=== PATIENT | male | born 1995 | race Caucasian/White ===

== ENCOUNTER → 2016-04-04 | Outpatient (CLI) | payer BC, OTHER | END | disposition home or self-care (01) | LOC: C.RDSM 04-03 08:00 | PROVIDERS: ATTEND Family Medicine | DX: L72.11 Pilar cyst (principal); M79.672 Pain in left foot ==

== ENCOUNTER → 2016-05-20 | Outpatient (CLI) | payer BC, OTHER ==
--- NOTE | 2016-05-20 11:29 | DIAGNOSTIC IMAGING REPORT ---
RIGHT HEEL MIN 2 VIEWS CLINICAL HISTORY: Right heel pain. COMPARISON: None. DISCUSSION: No acute fractures are visualized. There are no areas of periostitis. No destructive lesions are evident. There is a corticated density projected over the dorsal aspect of the talus. The skeleton the old. IMPRESSION: No acute fractures. No destructive lesions are evident Electronically signed by: Reggie Craven M.D. 05/20/2016 11:27 AM Dictated Date/Time: 05/20/2016 11:26 AM
== END | disposition home or self-care (01) ==
LOC: C.RDSM 10:59
PROVIDERS: ATTEND Internal Medicine
DX: M79.671 Pain in right foot (principal)